=== PATIENT | male | born 1985 | race Caucasian/White ===

== ENCOUNTER 2018-11-03 08:45 | Inpatient (IN) | payer OTHER ==
[2018-11-03 09:22] VITALS: BMI 20.3
--- NOTE | 2018-11-03 10:08 | HP ---
COWS - Scale Resting Pulse: 0= ND 80 or Below Sweatin= Chills/Flushing Restless Observation: 3= Extraneous Movement Pupil Size: 1= Pupils >than Normal Bone or Joint Aches: 2= Severe Diffuse Aches Runny Nose/ Eye Tearin= Nasal Congestion GI Upset > 30mins: 2= Nausea/Diarrhea Tremor Observation: 2= Slight Tremor Visible Yawning Observation: 1= 1-2x During Session Anxiety or Irritability: 2=Irritable/Anxious Goose Flesh Skin: 0=Smooth Skin COWS Score: 15 CIWA Score - Admission Criteria [facility] Guidelines: Admission for Medically Managed Detox: Requires at least one of the followin. CIWA greater than 12 2. Seizures within the past 24 hours 3. Delirium tremens within the past 24 hours 4. Hallucinations within the past 24 hours 5. Acute intervention needed for co occurring medical disorder 6. Acute intervention needed for co occurring psychiatric disorder 7. Severe withdrawal that cannot be handled at a lower level of care (continued vomiting, continued diarrhea, abnormal vital signs) requiring intravenous medication and/or fluids 8. Admission ROS S - HPI Chief Complaint: i need help to stop using heroin and alcohol Allergies/Adverse Reactions: Allergies Allergy/AdvReac Type Severity Reaction Status Date / Time No Known Allergies Allergy Verified 11/03/18 10:05 History of Present Illness: this 33 years old male with heroin and cociane dependence seeking detox, withdrawal symptom,last detox 2015 did not recall the facility weight loss nicotine dependence denied any medical problem longest period of sobriety 7 months stated need help to stop using heroin and carck Exam Limitations: No Limitations - Ebola screening Have you traveled outside of the country in the last 21 days: No Have you had contact with anyone from an Ebola affected area: No Have you been sick,other than usual withdrawal symptoms: No Do you have a fever: No - Review of Systems Constitutional: Chills, Loss of Appetite, Malaise, Night Sweats, Changes in sleep, Weakness, Unintentional Wgt. Loss EENT: reports: Tearing, Nose Congestion Respiratory: reports: No Symptoms reported Cardiac: reports: No Symptoms Reported GI: reports: Diarrhea, Nausea, Vomiting, Abdominal cramping : reports: No Symptoms Reported Musculoskeletal: reports: Back Pain, Joint Pain, Muscle Pain, Joint Stiffness Integumentary: reports: Dryness Neuro: reports: Headache, Tremors Endocrine: reports: No Symptoms Reported Hematology: reports: No Symptoms Reported Psychiatric: reports: No Sypmtoms Reported, Judgement Intact, Mood/Affect Appropiate, Orientated x3 Patient History - Patient Medical History Hx Anemia: No Hx Asthma: No Hx Chronic Obstructive Pulmonary Disease (COPD): No Hx Cancer: No Hx Cardiac Disorders: No Hx Congestive Heart Failure: No Hx Hypertension: No Hx Hypercholesterolemia: No Hx Pacemaker: No HX Cerebrovascular Accident: No Hx Seizures: No Hx Dementia: No Hx Diabetes: No Hx Gastrointestinal Disorders: No Hx Liver Disease: No Hx Genitourinary Disorders: No Hx Sexually Transmitted Disorders: No Hx Renal Disease (ESRD): No Hx Thyroid Disease: No Hx Human Immunodeficiency Virus (HIV): No (last 09/15 negtive) Hx Hepatitis C: No Hx Depression: No Hx Suicide Attempt: No Hx Bipolar Disorder: No Hx Schizophrenia: No Other Medical History: no sucidal,no homicidal - Patient Surgical History Past Surgical History: No - PPD History Previous Implant?: Yes Documented Results: Negative w/o proof Implanted On Prior [facility] Admission?: No PPD to be Administered?: Yes - Smoking Cessation Smoking history: Current every day smoker Have you smoked in the past 12 months: Yes Cigars Per Day: 5 Hx Chewing Tobacco Use: No Initiated information on smoking cessation: Yes 'Breaking Loose' booklet given: 11/03/18 - Substance & Tx. History Hx Alcohol Use: No Hx Substance Use: Yes Substance Use Type: Cocaine, Heroin Hx Substance Use Treatment: Yes (2016 did not recall the facility) - Substances Abused Heroin Route: Injection Frequency: Daily Amount used: 32 Date of Last Use: 11/01/18 Crack Route: Smoking Frequency: 3-6 times per week Amount used: $30 Age of first use: 30 Date of Last Use: 11/01/18 Family Disease History - Family Disease History Family History: Denies Admission Physical Exam S - Vital Signs Vital Signs: Vital Signs - 24 hr 11/03/18 09:20 Temperature 97.3 F L Pulse Rate 68 Respiratory 17 Rate Blood Pressure 150/87 - Physical General Appearance: Yes: Moderate Distress, Tremorous, Irritable, Sweating, Anxious HEENTM: Yes: Normal ENT Inspection, [place], Pharynx Normal Respiratory: Yes: Lungs Clear, Normal Breath Sounds, No Respiratory Distress Neck: Yes: Within Normal Limits, Supple, Trachea in good position Breast: Yes: Within Normal Limits Cardiology: Yes: Within Normal Limits, Regular Rhythm, Regular Rate, S1, S2 Abdominal: Yes: Within Normal Limits, Normal Bowel Sounds, Non Tender, Flat, Soft Genitourinary: Yes: Within Normal Limits Back: Yes: Muscle Spasm Musculoskeletal: Yes: full range of Motion, Back pain, Joint Stiffness, Muscle Pain Extremities: Yes: Within Normal Limits, Normal Inspection, Normal Range of Motion, Tremors Neurological: Yes: fan installer II-XII NML intact, Fully Oriented, Alert, Motor Strength 5/5 Integumentary: Yes: Dry Lymphatic: Yes: Within Normal Limits - Diagnostic (1) Opioid dependence with withdrawal Status: Acute (2) Cocaine dependence Status: Chronic (3) Nicotine dependence Status: Chronic (4) Weight loss Status: Acute Cleared for Admission [facility] - Detox or Rehab [facility] Level of Care: Medically Managed Detox Regimen/Protocol: Methadone [facility] Breath Alcohol Content Breath Alcohol Content: 0 Urine Drug Screen - Results Drug Screen Negative: No Urine Drug Screen Results: KOLBY-Cocaine, OPI-Opiates, FEN-Fentanyl
[2018-11-03] MEDS ORDERED: ACETAMINOPHEN 325 MG TABLET (FP) PO PRN (10:13)
[2018-11-03] MEDS ORDERED: LOPERAMIDE HCL 2 MG CAPSULE PO PRN (10:13)
[2018-11-03] MEDS ORDERED: MAG HYDROX/AL HYDROX/SIMETH 30 ML UNIT-DOSE CUP PO PRN (10:13)
[2018-11-03] MEDS ORDERED: MAGNESIUM CITRATE 300 ML BOTTLE PO PRN (10:13)
[2018-11-03] MEDS ORDERED: guaiFENesin/D-METHORPHAN HB 10 ML UNIT-DOSE CUPS PO PRN (10:13)
[2018-11-03] MEDS ORDERED: MAGNESIUM HYDROX 2400MG/30ML ORAL SUSPENSION 30 ML CUP PO PRN (10:13)
[2018-11-03] MEDS ORDERED: IBUPROFEN 400 MG TABLET (FP) PO PRN (10:13)
[2018-11-03] MEDS ORDERED: MENTHOL/PHENOL 1 EACH UD MM PRN (10:13)
[2018-11-03] MEDS ORDERED: hydrOXYzine PAMOATE 25 MG CAPSULE (FP) PO PRN (10:13)
[2018-11-03] MEDS ORDERED: P-EPHED 60MG/TRIPROLIDI 2.5MG TABLET PO PRN (10:13)
[2018-11-03] MEDS ORDERED: METHADONE HCL 10 MG TABLET (FOR DETOX USE ONLY) PO ONE ×2 (10:45→23:00)
[2018-11-03] MEDS: diazePAM 5 MG TABLET PO PRN ×2 (13:43→22:33)
[2018-11-03] MEDS: CYCLOBENZAPRINE HCL 10 MG TABLET (FP) PO PRN (13:43)
[2018-11-03] MEDS ORDERED: ONDANSETRON *ODT* 4 MG TABLET SL PRN (16:24)
--- NOTE | 2018-11-03 16:25 | PN ---
[facility] Progress Note Note: Pt with nausea and vomiting- tigan stat ordered and prn zofran
[2018-11-03] MEDS ORDERED: TRIMETHOBENZAMIDE HCL 200MG/2ML INJ IM ONE (17:45)
[2018-11-03 18:19] LABS: URINE APPEARANCE TURBID; URINE BILIRUBIN NEGATIVE (<2.0 mg/dL); URINE COLOR YELLOW; URINE GLUCOSE (UA) NEGATIVE (NEGATIVE); URINE KETONE NEGATIVE (NEGATIVE); URINE LEUK ESTERASE NEGATIVE (NEGATIVE); URINE NITRITE NEGATIVE (NEGATIVE); URINE PROTEIN NEGATIVE (NEGATIVE)
[2018-11-03] MEDS ORDERED: THIAMINE HCL 100 MG TABLET (FP) PO SCH (22:00)
[2018-11-03] MEDS ORDERED: MELATONIN 5 MG TABLETS PO PRN (22:00)
[2018-11-03] MEDS: cloNIDine HCL 0.1 MG TABLET PO SCH (22:33)
[2018-11-04] MEDS ORDERED: TRIMETHOBENZAMIDE HCL 200MG/2ML INJ IM PRN (01:12)
[2018-11-04 09:12] VITALS: BP 136/79; PULSE 67; TEMP 97.3
[2018-11-04] MEDS ORDERED: METHADONE HCL 10 MG TABLET (FOR DETOX USE ONLY) PO ONE (10:00)
[2018-11-04] MEDS ORDERED: PRENATAL VITAMINS W/ FOLIC ACID TABLET (FP) PO SCH (10:00)
[2018-11-04 10:10] LABS: HEMATOCRIT 36.8 % (35.4-49); HEMOGLOBIN 12.8 GM/dL (11.7-16.9); MCHC 34.6 g/dl (32.0-35.9); MEAN CELL VOLUME 86.7 fl (80-96); MEAN PLT VOLUME 8.5 fl (7.5-11.1); PLATELET COUNT 369 K/MM3 (134-434); RBC 4.25 M/mm3 (4.00-5.60); RDW 15.1 % (11.9-15.9); WHITE BLOOD COUNT 4.9 K/mm3 (4.0-10.0)
[2018-11-04] MEDS: CYCLOBENZAPRINE HCL 10 MG TABLET (FP) PO PRN (10:33)
[2018-11-04] MEDS: cloNIDine HCL 0.1 MG TABLET PO SCH (10:33)
[2018-11-04] MEDS: diazePAM 5 MG TABLET PO PRN (10:33)
[2018-11-04 11:00] LABS: ALBUMIN 3.3 g/dl (3.4-5.0); ALK PHOS 93 U/L (45-117); ANION GAP 10 MMOL/L (8-16); BILIRUBIN,TOTAL 0.2 mg/dL (0.2-1); BLOOD UREA NITROGEN 17 mg/dL (7-18); CALCIUM 8.6 mg/dL (8.5-10.1); CHLORIDE 103 mmol/L (98-107); CO2 26 mmol/L (21-32); CREATININE 0.9 mg/dL (0.55-1.3); GLUCOSE,RANDOM 83 mg/dL (74-106); POTASSIUM 3.7 mmol/L (3.5-5.1); SGOT/AST 35 U/L (15-37); SGPT/ALT 35 U/L (13-61); SODIUM 139 mmol/L (136-145); TOT PROT 6.7 g/dl (6.4-8.2)
--- NOTE | 2018-11-04 16:14 | DS ---
[facility] Detox Discharge Summary Admission Date: 11/03/18 Discharge Date: 11/04/18 - History Present History: Cocaine Dependence, Opioid Dependence Additional Comments: Patient admitted to detox for opioid dependence. Patient with chronic history of opioid and cocaine dependence. As per patient, he does IV heroin. Patient demanded to leave AMA stating that he wants more methadone. Patient ordered for tigan IM prn due to N/V but stated he doesn't want it. Staff encouraged patient to stay and complete detox but he refused to stay. As per patient, his sister is on her way to pick him up. Pharmacy Technician Trainee saw patient in the hallway on first floor walking towards security with staff to get his belongings. Patient noted with unsteady gait. Pharmacy Technician Trainee accompanied patient to security and patient provided telephone number for adjusto writer operator to call his sister (sister's name is Evi: ). Pharmacy Technician Trainee spoke with sister who stated that she was in the front lobby. Pharmacy Technician Trainee and MA accompanied patient to lobby to meet with his sister. Patient's sister and their mother was present. Patient initially told adjusto writer operator that he doesn 't want adjusto writer operator to speak with his sister. Patient's sister told the patient that she will not take him home unless he gives her permission to speak with adjusto writer operator in which patient gave verbal consent. Pharmacy Technician Trainee informed patient's sister that he was admitted yesterday for opioid dependence and that he has been vomiting and doesn't look good and needs to go to ER (patient sister asked adjusto writer operator the date patient came in and the reason for admission). As per sister, patient has been using heroin for a long time and took MMTP on and off. Patient began to vomit large amount of projectile bilious fluids in a clear plastic bag while sitting in the lobby. Pharmacy Technician Trainee then told patient that he really needs to go to ER for IV hydration and evaluation. Patient initially accepted to go to ER via EMS then changed his mind. Pharmacy Technician Trainee called 911 for patient to be transferred to ER in which his sister and his mother agreed but patient refused stating that he has the right to refuse. Patient signed refusal form with EMS. As per patient's sister, patient was in the [facility] for 4 years and was discharged due to illicit drug use. As per patient, he has been using heroin for a very long time and that he was in a MMTP program on 70mg of methadone but he left the program couple months ago and has been using IV heroin on the streets. Patient stated that he will return to his methadone program tomorrow. As per patient, he is going home to use heroin. As per patient's sister, she has narcan kits at home and that she is a nursing services manager and knows how to administer the kit. Patient' s sister and mother decided to take him home but sister stated that she will take him to [facility] near their home so that it's easier for his mother to visit him. Patient is A, A, Ox 3, a little unsteady gait noted, patient insisted on leaving with his family. Patient educated on complication of withdrawal including seizure and that he can from overdose but he still insisted on going home stating that he is aware of everything that could go wrong but that he will be fine. Finger stick as per EMS was 205mg/dl. As per patient's sister, she plans to go to court and have patient court mandated to long-term rehab. Pertinent Past History: Opioid dependence Cocaine dependence Nicotine dependence - Physical Exam Results Vital Signs: Vital Signs Temperature 97.3 F L 11/04/18 09:35 Pulse Rate 67 11/04/18 09:35 Respiratory Rate 16 11/04/18 09:35 Blood Pressure 136/79 11/04/18 09:35 O2 Sat by Pulse Oximetry (%) Pertinent Admission Physical Exam Findings: Withdrawal symptoms Laboratory Tests 11/03/18 11/04/18 11/04/18 13:57 06:00 06:00 WBC 4.9 RBC 4.25 Hgb 12.8 Hct 36.8 MCV 86.7 MCH 30.0 MCHC 34.6 RDW 15.1 Plt Count 369 MPV 8.5 Sodium 139 Potassium 3.7 Chloride 103 Carbon Dioxide 26 Anion Gap 10 BUN 17 Creatinine 0.9 Creat Clearance w eGFR > 60 Random Glucose 83 Calcium 8.6 Total Bilirubin 0.2 AST 35 ALT 35 Alkaline Phosphatase 93 Total Protein 6.7 Albumin 3.3 L Urine Color Yellow Urine Appearance Turbid Urine pH 5.0 Ur Specific [place] 1.032 Urine Protein Negative Urine Glucose (UA) Negative Urine Ketones Negative Urine Blood Negative Urine Nitrite Negative Urine Bilirubin Negative Urine Urobilinogen 2.0 Ur Leukocyte Esterase Negative Labs reviewed - Medication Discharge Medications: Ambulatory Orders NK [No Known Home Medication] 11/03/18 - AMA Did Patient Leave Against Medical Advice: Yes (EMS called but patient refused to go with EMS)
[2018-11-05] MEDS ORDERED: METHADONE HCL 5 MG TABLET (FOR DETOX USE ONLY) PO ONE (10:00)
[2018-11-06] MEDS ORDERED: METHADONE HCL 5 MG TABLET (FOR DETOX USE ONLY) PO ONE (10:00)
[2018-11-07] MEDS ORDERED: METHADONE HCL 10 MG TABLET (FOR DETOX USE ONLY) PO ONE (10:00)
[2018-11-08] MEDS ORDERED: METHADONE HCL 5 MG TABLET (FOR DETOX USE ONLY) PO ONE (06:00)
== END 2018-11-04 12:35 | disposition left against medical advice (07) | DRG 770 ==
LOC: YASAS 08:45 → Y3N 10:11
PROC: HZ2ZZZZ Detoxification Services for Substance Abuse Treatment (ICD-10-PCS; principal; 2018-11-03)
DX: F11.23 Opioid dependence with withdrawal (principal); F14.20 Cocaine dependence, uncomplicated; F17.200 Nicotine dependence, unspecified, uncomplicated; R11.2 Nausea with vomiting, unspecified; R63.4 Abnormal weight loss; Z68.20 Body mass index [BMI] 20.0-20.9, adult
CPT/HCPCS: 36415; 80053; 81003; 85027; 86593; J0735; Q0162

== ENCOUNTER 2020-10-10 10:42 | Inpatient (IN) | payer OTHER ==
[2020-10-10 11:32] VITALS: BMI 22.1
[2020-10-10] MEDS ORDERED: MAGNESIUM CITRATE 300 ML BOTTLE PO PRN (11:56)
[2020-10-10] MEDS ORDERED: METHADONE HCL 10 MG TABLET (FOR DETOX USE ONLY) PO ONE (11:56)
[2020-10-10] MEDS ORDERED: cloNIDine HCL 0.1 MG TABLET PO PRN (11:56)
[2020-10-10] MEDS ORDERED: ACETAMINOPHEN 325 MG TABLET (FP) PO PRN (11:56)
[2020-10-10] MEDS ORDERED: MAGNESIUM HYDROX 2400MG/30ML ORAL SUSPENSION 30 ML CUP PO PRN (11:56)
[2020-10-10] MEDS ORDERED: ONDANSETRON *ODT* 4 MG TABLET SL PRN (11:56)
[2020-10-10] MEDS ORDERED: MENTHOL/PHENOL 1 EACH UD MM PRN (11:56)
[2020-10-10] MEDS ORDERED: BISMUTH SUBSALICYLATE 262 MG/15 ML BTL PO PRN (11:56)
[2020-10-10] MEDS ORDERED: MAG HYDROX/AL HYDROX/SIMETH 30 ML UNIT-DOSE CUP PO PRN (11:56)
[2020-10-10] MEDS: METHOCARBAMOL 500 MG TABLET PO PRN (12:44)
[2020-10-10] MEDS: IBUPROFEN 400 MG TABLET (FP) PO PRN ×2 (12:45→22:11)
[2020-10-10] MEDS: hydrOXYzine PAMOATE 25 MG CAPSULE (FP) PO SCH ×3 (13:00→22:10)
[2020-10-10 13:21] LABS: HEMATOCRIT 34.5 % (35.4-49); HEMOGLOBIN 11.7 GM/dL (11.7-16.9); MCH 30.5 pg (25.7-33.7); MEAN CELL VOLUME 89.8 fl (80-96); MEAN PLT VOLUME 8.7 fl (7.5-11.1); PLATELET COUNT 280 K/MM3 (134-434); RBC 3.84 M/mm3 (4.00-5.60); RDW 14.7 % (11.9-15.9); WHITE BLOOD COUNT 6.3 K/mm3 (4.0-10.0)
[2020-10-10 13:26] LABS: POTASSIUM 4.4 mmol/L (3.5-5.1)
[2020-10-10 13:35] LABS: ALBUMIN 3.2 g/dl (3.4-5.0); BLOOD UREA NITROGEN 12.6 mg/dL (7-18)
[2020-10-10 13:36] LABS: BILIRUBIN,TOTAL 0.3 mg/dL (0.2-1); CALCIUM 9.2 mg/dL (8.5-10.1)
[2020-10-10 13:38] LABS: CREATININE 0.8 mg/dL (0.55-1.3)
[2020-10-10 14:21] LABS: HIV INTERPRETATION NEGATIVE (NEGATIVE)
[2020-10-10] MEDS: MELATONIN 5 MG TABLETS PO SCH (22:10)
[2020-10-10] MEDS: THIAMINE HCL 100 MG TABLET (FP) PO SCH (22:10)
[2020-10-11] MEDS: hydrOXYzine PAMOATE 25 MG CAPSULE (FP) PO SCH ×3 (06:58→14:30)
[2020-10-11] MEDS ORDERED: METHADONE HCL 10 MG TABLET (FOR DETOX USE ONLY) ONE (09:04)
[2020-10-11] MEDS ORDERED: METHADONE HCL 5 MG TABLET (FOR DETOX USE ONLY) ONE (09:04)
[2020-10-11] MEDS ORDERED: METHADONE (DETOX) 20 MG, METHADONE (DETOX) 5 MG PO ONE (10:00)
[2020-10-11] MEDS: PRENATAL VITAMINS W/ FOLIC ACID TABLET (FP) PO SCH (10:12)
[2020-10-11] MEDS: NICOTINE 14 MG/24 HOURS TOPICAL PATCH TD SCH (10:13)
[2020-10-11] MEDS: METHOCARBAMOL 500 MG TABLET PO PRN (10:15)
[2020-10-11] MEDS: diazePAM 5 MG TABLET PO PRN (10:17)
[2020-10-11] MEDS ORDERED: hydrOXYzine PAMOATE 25 MG CAPSULE (FP) PO PRN (15:01)
[2020-10-11] MEDS: THIAMINE HCL 100 MG TABLET (FP) PO SCH (22:26)
[2020-10-11] MEDS: MELATONIN 5 MG TABLETS PO SCH (22:26)
[2020-10-12] MEDS ORDERED: METHADONE HCL 10 MG TABLET (FOR DETOX USE ONLY) PO ONE (10:00)
[2020-10-12] MEDS: PRENATAL VITAMINS W/ FOLIC ACID TABLET (FP) PO SCH (10:12)
[2020-10-12] MEDS: NICOTINE 14 MG/24 HOURS TOPICAL PATCH TD SCH (10:12)
[2020-10-12] MEDS: MELATONIN 5 MG TABLETS PO SCH (22:04)
[2020-10-12] MEDS: THIAMINE HCL 100 MG TABLET (FP) PO SCH (22:04)
[2020-10-12] MEDS: diazePAM 5 MG TABLET PO PRN (22:04)
[2020-10-13] MEDS ORDERED: METHADONE HCL 5 MG TABLET (FOR DETOX USE ONLY) ONE (09:08)
[2020-10-13] MEDS ORDERED: METHADONE HCL 10 MG TABLET (FOR DETOX USE ONLY) ONE (09:08)
[2020-10-13] MEDS: PRENATAL VITAMINS W/ FOLIC ACID TABLET (FP) PO SCH (10:00)
[2020-10-13] MEDS ORDERED: METHADONE (DETOX) 10 MG, METHADONE (DETOX) 5 MG PO ONE (10:00)
[2020-10-13] MEDS: NICOTINE 14 MG/24 HOURS TOPICAL PATCH TD SCH (10:01)
[2020-10-13] MEDS: METHOCARBAMOL 500 MG TABLET PO PRN (10:01)
[2020-10-13] MEDS: ACETAMINOPHEN 325 MG TABLET (FP) PO PRN ×2 (12:59→22:28)
[2020-10-13] MEDS: MELATONIN 5 MG TABLETS PO SCH (22:28)
[2020-10-13] MEDS: THIAMINE HCL 100 MG TABLET (FP) PO SCH (22:28)
[2020-10-13] MEDS: diazePAM 5 MG TABLET PO PRN (22:28)
[2020-10-14] MEDS: diazePAM 5 MG TABLET PO PRN (02:26)
[2020-10-14] MEDS: NICOTINE POLACRILEX 2 MG GUM BUC PRN ×2 (02:28→22:08)
[2020-10-14] MEDS ORDERED: METHADONE HCL 10 MG TABLET (FOR DETOX USE ONLY) PO ONE (10:00)
[2020-10-14] MEDS: PRENATAL VITAMINS W/ FOLIC ACID TABLET (FP) PO SCH (10:22)
[2020-10-14] MEDS: NICOTINE 14 MG/24 HOURS TOPICAL PATCH TD SCH (10:22)
[2020-10-14] MEDS: ACETAMINOPHEN 325 MG TABLET (FP) PO PRN ×2 (11:32→22:09)
[2020-10-14 11:46] LABS: SGOT/AST 48 U/L (15-37); SGPT/ALT 127 U/L (13-61)
[2020-10-14] MEDS: THIAMINE HCL 100 MG TABLET (FP) PO SCH (22:08)
[2020-10-14] MEDS: METHOCARBAMOL 500 MG TABLET PO PRN (22:08)
[2020-10-14] MEDS: MELATONIN 5 MG TABLETS PO SCH (22:08)
[2020-10-15] MEDS ORDERED: METHADONE HCL 5 MG TABLET (FOR DETOX USE ONLY) PO ONE (06:00)
[2020-10-15 10:17] VITALS: BP 123/74; PULSE 76; TEMP 97.1
[2020-10-16 00:07] LABS: HEP B CORE AB, TOT Negative (Negative)
== END 2020-10-15 11:15 | disposition home or self-care (01) | DRG 773 ==
LOC: YASAS 10:42 → Y6N 11:57
PROVIDERS: ADMIT Allergy & Immunology; ATTEND Allergy & Immunology
PROC: HZ2ZZZZ Detoxification Services for Substance Abuse Treatment (ICD-10-PCS; principal; 2020-10-10)
DX: F11.23 Opioid dependence with withdrawal (principal); F14.20 Cocaine dependence, uncomplicated; F17.210 Nicotine dependence, cigarettes, uncomplicated; E88.09 Other disorders of plasma-protein metabolism, not elsewhere classified; D64.9 Anemia, unspecified; R74.01 Elevation of levels of liver transaminase levels; R63.4 Abnormal weight loss; Z68.22 Body mass index [BMI] 22.0-22.9, adult; Z90.49 Acquired absence of other specified parts of digestive tract
CPT/HCPCS: 36415; 80053; 84450; 84460; 85027; 86704; 86706; 86707; 86708; 86709; 86780; 87340; 87389; 87522; 93005; 93010; C9803; U0003